=== PATIENT | female | born 1950 | race Caucasian/White ===

== ENCOUNTER 2017-05-06 10:00 | Emergency (ER) | payer OTHER ==
[~2017-05-06] VITALS: Ht 167.6 cm; Wt 100.0 kg
[~2017-05-06 10:00] MED LIST: ASPI81CH3; CENTTAB9 PO; CURCPOW XX; flexamin
[2017-05-06] MEDS ORDERED: IOHEXOL 350 MG/ML 10 ML VIAL (for RAD DIAG) IVCONTRAST ONE (10:01)
[2017-05-06 10:22] VITALS: BP 148/91; PULSE 95; RESP 16; TEMP 98.9; O2SAT 97
[2017-05-06] MEDS ORDERED: SODIUM CHLORIDE 0.9% FLUSH 10 ML FLUSH IV FLUSH PRN (10:30)
[2017-05-06 10:40] VITALS: O2SAT 97
[2017-05-06 10:51] LABS: BLOOD, URINE SMALL (NEG); GLUCOSE,URINE NEG (NEG); KETONE, URINE NEG (NEG); NITRITE,URINE NEG (NEG); PH, URINE 5.5 (5.0-8.5)
--- NOTE | 2017-05-06 10:55 | PD ---
HPI Chief Complaint: Abdominal Pain Time Seen by Provider: 10:12 Travel History International Travel<30 days: No Contact w/Intl Traveler<30days: No Traveled to known affect area: No History of Present Illness HPI 67-year-old female here for evaluation of abdominal pain and rectal pain. Symptoms started yesterday. Patient describes a burning sensation in her rectum as well as lower abdominal pain that she describes as pressure-like. History of appendectomy. No other abdominal surgeries. She has had increase in the amount of bowel movements she has had over the last 2 days, however denies diarrhea, melena, or hematochezia. No urinary symptoms. She reports that she had a colonoscopy about 2 years ago and reports that it was unremarkable. [facility] Past Medical History Diminished Hearing: No Medical other: Yes (pituitary tumor) Tetanus Vaccination: > 5 Years Influenza Vaccination: Yes ?: Not Past Surgical History Appendectomy: Yes Social History Alcohol Use: Yes (rare) Tobacco Use: No Substance Use: No Allergies-Medications (Allergen,Severity, Reaction): Coded Allergies: No Known Allergies (Unverified , 07/15/15) Reported Meds & Prescriptions Reported Meds & Active Scripts Active Reported Aspirin 81 Low Dose (Aspirin) 81 Mg Chw Curcumin (Turmeric (Curcuma Longa) (Bulk) Pow 1 XX [flexamin] Centrum (Multivitamins) Tab 1 Tab PO DAILY Review of Systems Except as stated in HPI: all other systems reviewed are Neg Physical Exam Narrative GENERAL: Well-developed, well-nourished, comfortable, no apparent distress. SKIN: Focused skin assessment warm/dry. HEAD: Atraumatic. Normocephalic. EYES: Pupils equal and round. No scleral icterus. No injection or drainage. ENT: Mucous membranes pink and moist. NECK: Trachea midline. No JVD. CARDIOVASCULAR: Regular rate and rhythm. RESPIRATORY: No accessory muscle use. Clear to auscultation. Breath sounds equal bilaterally. GASTROINTESTINAL: Abdomen soft, nondistended. Mild lower abdominal and suprapubic tenderness without peritoneal signs. Rest of abdomen is soft and nontender. RECTUM: Moderate left-sided external hemorrhoid that is nonthrombosed, no bleeding, no fissures. MUSCULOSKELETAL: No obvious deformities. No clubbing. No cyanosis. No edema. NEUROLOGICAL: Awake and alert. No obvious cranial nerve deficits. Motor grossly within normal limits. Normal speech. PSYCHIATRIC: Appropriate mood and affect; insight and judgment normal. Data Data Last Documented VS Vital Signs Date Time Temp Pulse Resp B/P (MAP) Pulse Ox O2 Delivery O2 Flow Rate FiO2 05/06/17 10:40 97 05/06/17 10:24 16 05/06/17 10:22 98.9 95 148/91 (110) Orders Orders Complete Blood Count With Diff (05/06/17 10:16) Comprehensive Metabolic Panel (05/06/17 10:16) Prothrombin Time / Inr (Pt) (05/06/17 10:16) Act Partial Throm Time (Ptt) (05/06/17 10:16) Urinalysis - C+S If Indicated (05/06/17 10:16) Ct Abd/Pel W Iv Contrast(Rout) (05/06/17 10:16) Iv Access Insert/Monitor (05/06/17 10:16) Ecg Monitoring (05/06/17 10:16) Oximetry (05/06/17 10:16) Sodium Chloride 0.9% Flush (Ns Flush) (05/06/17 10:30) Urine Culture (05/06/17 10:00) Iohexol 350 Inj (Omnipaque 350 Inj) (05/06/17 10:01) Labs Laboratory Tests Test 05/06/17 10:00 05/06/17 10:38 Urine Collection Type CLEAN CATCH Urine Color YELLOW Urine Turbidity SLIGHT Urine pH 5.5 Urine Specific [place] 1.023 Urine Protein TRACE mg/dL Urine Glucose (UA) NEG mg/dL Urine Ketones NEG mg/dL Urine Occult Blood SMALL Urine Nitrite NEG Urine Bilirubin NEG Urine Leukocyte Esterase SMALL Urine RBC 4-9 /hpf Urine WBC 9-14 /hpf Urine WBC Clumps FEW Urine Squamous Epithelial Cells > 8 /hpf Urine Transitional Epithelial Cells 0-5 /hpf Urine Amorphous Sediment MOD Urine Bacteria MOD /hpf Microscopic Urinalysis Comment CULTURE INDICATED Urine Collection Time 1000 White Blood Count 11.4 TH/MM3 Red Blood Count 4.71 MIL/MM3 Hemoglobin 13.7 GM/DL Hematocrit 41.7 % Mean Corpuscular Volume 88.6 FL Mean Corpuscular Hemoglobin 29.2 PG Mean Corpuscular Hemoglobin Concent 33.0 % Red Cell Distribution Width 13.7 % Platelet Count 241 TH/MM3 Mean Platelet Volume 9.8 FL Neutrophils (%) (Auto) 75.3 % Lymphocytes (%) (Auto) 15.0 % Monocytes (%) (Auto) 7.5 % Eosinophils (%) (Auto) 1.6 % Basophils (%) (Auto) 0.6 % Neutrophils # (Auto) 8.5 TH/MM3 Lymphocytes # (Auto) 1.7 TH/MM3 Monocytes # (Auto) 0.9 TH/MM3 Eosinophils # (Auto) 0.2 TH/MM3 Basophils # (Auto) 0.1 TH/MM3 CBC Comment DIFF FINAL Differential Comment Prothrombin Time 10.8 SEC Prothromb Time International Ratio 1.0 RATIO Activated Partial Thromboplast Time 29.0 SEC Blood Urea Nitrogen 11 MG/DL Creatinine 0.97 MG/DL Random Glucose 137 MG/DL Total Protein 7.4 GM/DL Albumin 3.6 GM/DL Calcium Level 8.7 MG/DL Alkaline Phosphatase 93 U/L Aspartate Amino Transf (AST/SGOT) 21 U/L Alanine Aminotransferase (ALT/SGPT) 33 U/L Total Bilirubin 0.5 MG/DL Sodium Level 139 MEQ/L Potassium Level 3.7 MEQ/L Chloride Level 105 MEQ/L Carbon Dioxide Level 27.8 MEQ/L Anion Gap 6 MEQ/L Estimat Glomerular Filtration Rate 57 ML/MIN MDM Medical Decision Making Medical Screen Exam Complete: Yes Emergency Medical Condition: Yes Differential Diagnosis Colitis, diverticulitis, cystitis, UTI, hemorrhoid Narrative Course Vital signs show heart rate 95, blood pressure 148/91, pulse ox 97% on room air , oral temp of 98.9F. CBC is unremarkable. CMP is remarkable for random glucose 137, otherwise unremarkable. UA shows small occult blood, small leukocyte esterase, 49 RBCs, 9-14 wbc's, few wbc clumps, moderate bacteria, culture indicated. Abdomen pelvis: CONCLUSION: 1. Acute sigmoid diverticulitis without perforation, abscess, or obstruction. 2. Cholelithiasis. The patient was made aware of all findings and was provided a copy of her CT abdomen pelvis report. She will be treated as an outpatient with oral antibiotics. PMD follow-up this week. Patient informed on when to return to the emergency department. She verbalizes understanding and agreement with plan. Diagnosis Primary Impression: Acute diverticulitis Referrals: Primary Care Physician 3 days Additional Instructions: Follow-up with your primary care physician this week. Return to the emergency department for worsening symptoms or any other concerns. Scripts Metronidazole (Flagyl) 500 Mg Tab 500 MG PO BID for Infection for 10 Days, TAB 0 Refills Prov: Pietro Nur MD 05/06/17 Ciprofloxacin (Cipro) 500 Mg Tab 500 MG PO BID for Infection for 10 Days, TAB 0 Refills Prov: Pietro Nur MD 05/06/17 Disposition: 01 DISCHARGE HOME Condition: Stable Pietro Nur MD May 06, 2017 10:55
[2017-05-06 10:57] LABS: METHOD OF COLLECTION CLEAN CATCH; URINE COLOR YELLOW (YELLW/STRAW)
[2017-05-06 10:59] LABS: BACTERIA, URINE MOD /hpf; COMMENT (UR) CULTURE INDICATED; COMMENT2 (UR) MUCOUS PRESENT; CULTURE IF INDICATED CULTURE INDICATED; SQUAMOUS EPITHELIAL CELL URINE > 8 /hpf (0-5)
[2017-05-06 10:59] LABS: CHLORIDE 105 MEQ/L (98-107); POTASSIUM 3.7 MEQ/L (3.5-5.1); SODIUM (NA) 139 MEQ/L (136-145)
[2017-05-06 11:00] LABS: TRANSITIONAL EPI CELLS, URINE 0-5 /hpf
[2017-05-06 11:01] LABS: AUTOMATED NEUTROPHIL # 8.5 TH/MM3 (1.8-7.7); BASOPHIL # 0.1 TH/MM3 (0-0.2); BASOPHIL % 0.6 % (0.0-2.0); EOSINOPHIL # 0.2 TH/MM3 (0-0.4); EOSINOPHIL % 1.6 % (0.0-4.0); HEMATOCRIT 41.7 % (35.0-46.0); HEMO FLAGS DIFF FINAL; LYMPHOCYTE # 1.7 TH/MM3 (1.0-4.8); MEAN CELL VOLUME 88.6 FL (80.0-100.0); MEAN CORPUSCULAR HEMOGLOBIN 29.2 PG (27.0-34.0); MONO % 7.5 % (0.0-8.0); NEUT % 75.3 % (16.0-70.0); PLATELET COUNT 241 TH/MM3 (150-450); RED BLOOD COUNT 4.71 MIL/MM3 (4.00-5.30); RED CELL DISTRIBUTION WIDTH 13.7 % (11.6-17.2); WHITE BLOOD COUNT 11.4 TH/MM3 (4.0-11.0)
[2017-05-06 11:02] LABS: PROTHROMBIN TIME - PATIENT 10.8 SEC (9.8-11.6)
[2017-05-06 11:03] LABS: ANION GAP 6 MEQ/L (5-15); BICARBONATE 27.8 MEQ/L (21.0-32.0); BLOOD UREA NITROGEN 11 MG/DL (7-18)
[2017-05-06 11:06] LABS: ALT (GPT) 33 U/L (10-53); AST (GOT) 21 U/L (15-37); GLOMERULAR FILTRATION RATE 57 ML/MIN (>89)
[2017-05-06 11:08] LABS: TOTAL BILIRUBIN ADULT 0.5 MG/DL (0.2-1.0)
[2017-05-06 11:09] LABS: ALKALINE PHOSPHATASE 93 U/L (45-117)
--- NOTE | 2017-05-06 11:40 | RADRPT ---
EXAM DATE/TIME: 05/06/2017 11:22 [place] COMPARISON: No previous studies available for comparison. INDICATIONS : Right lower quadrant pain. IV CONTRAST: 95 cc Omnipaque 350 (iohexol) IV ORAL CONTRAST: No oral contrast ingested. RADIATION DOSE: 21.29 CTDIvol (mGy) MEDICAL HISTORY : None SURGICAL HISTORY : Appendectomy. ENCOUNTER: Initial ACUITY: 2 days PAIN SCALE: 5/10 LOCATION: Right lower quadrant TECHNIQUE: Volumetric scanning of the abdomen and pelvis was performed. Using automated exposure control and ad justment of the mA and/or kV according to patient size, radiation dose was kept as low as reasonably achievable to obtain optimal diagnostic quality images. DICOM format image data is available electro nically for review and comparison. FINDINGS: LOWER LUNGS: The visualized lower lungs are clear. LIVER: Homogeneous density without lesion. There is no dilation of the biliary tree. Several rim calcified gallstones within an otherwise normal-appearing gallbladder. SPLEEN: Normal size without lesion. PANCREAS: Within normal limits. KIDNEYS: Normal in size and shape. There is no mass, stone or hydronephrosis. 2 tiny cortical cysts on the le ft. ADRENAL GLANDS: Within normal limits. VASCULAR: There is no aortic aneurysm. BOWEL/MESENTERY: There is an acute inflammatory process involving the sigmoid colon. There is circumferential wall thi ckening and stranding of the adjacent fat. No abscess or perforation. No free fluid. The remaining laverne wel structures are unremarkable. No dilatation. ABDOMINAL WALL: Within normal limits. RETROPERITONEUM: There is no lymphadenopathy. BLADDER: No wall thickening or mass. REPRODUCTIVE: Within normal limits. INGUINAL: There is no lymphadenopathy or hernia. MUSCULOSKELETAL: Within normal limits for patient age. CONCLUSION: 1. Acute sigmoid diverticulitis without perforation, abscess, or obstruction. 2. Cholelithiasis. Jerry Felix Jr., MD on May 06, 2017 at 11:35 Board Certified Radiologist. This report was verified electronically.
[2017-05-06] MEDS ORDERED: CIPR-9 PO (11:53)
[2017-05-06] MEDS ORDERED: METR-1 PO (11:53)
[2017-05-06] MEDS ORDERED: metroNIDAZOLE 500 MG TAB PO ONE (12:00)
[2017-05-06] MEDS ORDERED: CIPROFLOXACIN 500 MG TAB PO ONE (12:00)
[2017-05-06 12:13] VITALS: BP 119/71
== END 2017-05-06 12:28 | disposition home or self-care (01) ==
LOC: PHED 10:00
DX: K57.32 Diverticulitis of large intestine without perforation or abscess without bleeding (principal); K80.20 Calculus of gallbladder without cholecystitis without obstruction
CPT/HCPCS: 74177; 80053; 81001; 85025; 85610; 85730; 87086; 99285; Q9967